=== PATIENT | male | born 1950 | race Two or more races ===

== ENCOUNTER 2022-04-27 09:43 | Day surgery (SDC) | payer OTHER ==
[2022-04-22 15:00] VITALS: BMI 20.5
[2022-04-27 11:15] VITALS: RESP 16; TEMP 97.8
[2022-04-27 11:44] VITALS: BP 116/78; PULSE 78
== END 2022-04-27 11:40 | disposition home or self-care (01) ==
LOC: FASU-ENDO 09:43
PROVIDERS: ATTEND Internal Medicine Gastroenterology
PROC: 0DBP8ZX Excision of Rectum, Via Natural or Artificial Opening Endoscopic, Diagnostic (ICD-10-PCS; principal; 2022-04-27 10:25)
DX: D12.8 Benign neoplasm of rectum (principal); K64.0 First degree hemorrhoids; K57.30 Diverticulosis of large intestine without perforation or abscess without bleeding; R10.9 Unspecified abdominal pain
CPT/HCPCS: 82962; 88305-TC

== ENCOUNTER 2022-06-01 10:10 | Day surgery (SDC) | payer OTHER ==
[2022-05-31 16:46] VITALS: BMI 20.7
[2022-06-01 10:53] VITALS: RESP 16
[2022-06-01 14:50] VITALS: TEMP 97.9
[2022-06-01 14:53] VITALS: BP 130/86; PULSE 88
== END 2022-06-01 12:50 | disposition home or self-care (01) ==
LOC: FASU-ENDO 10:10
PROVIDERS: ATTEND Internal Medicine Gastroenterology
PROC: 0DB68ZX Excision of Stomach, Via Natural or Artificial Opening Endoscopic, Diagnostic (ICD-10-PCS; 2022-06-01)
PROC: 0DB48ZX Excision of Esophagogastric Junction, Via Natural or Artificial Opening Endoscopic, Diagnostic (ICD-10-PCS; 2022-06-01)
PROC: 0DB98ZX Excision of Duodenum, Via Natural or Artificial Opening Endoscopic, Diagnostic (ICD-10-PCS; principal; 2022-06-01 11:24)
DX: K29.50 Unspecified chronic gastritis without bleeding (principal); B96.81 Helicobacter pylori [H. pylori] as the cause of diseases classified elsewhere; R10.13 Epigastric pain
CPT/HCPCS: 82962; 88305-TC; 88342-TC